=== PATIENT | female | born 1960 ===

== ENCOUNTER 2025-01-07 10:45 | Inpatient (IN) | payer OTHER ==
[~2025-01-07] VITALS: Ht 167.6 cm; Wt 53.5 kg
[2025-01-07] MEDS ORDERED: ATORVASTATIN CA10 MG (13:08)
[2025-01-07] MEDS ORDERED: FOSAMAX70 MG (13:09)
[2025-01-14] MEDS ORDERED: CEFTRIAXONE SODIUM 2,000 MG VIAL ONE (09:44)
[2025-01-14] MEDS ORDERED: METRONIDAZOLE/SODIUM CHLORIDE 500 MG/100 ML PIGGYBACK IV ONE (09:45)
[2025-01-14] MEDS ORDERED: LIDOCAINE HCL 1%/EPINEPHRINE 20ML VIAL IJ ONE (10:11)
[2025-01-14] MEDS ORDERED: DIBUCAINE 30 GM TUBE ONE (10:11)
[2025-01-14] MEDS ORDERED: CHLORHEXIDINE GLUCONATE 120 ML BOTTLE TOP ONE (10:11)
[2025-01-14] MEDS ORDERED: HEMOSTATIC MATRIX 1 KIT KIT TOP ONE (10:11)
[2025-01-14] MEDS ORDERED: BUPIVACAINE HCL/MPF 0.5% 30ML VIAL ONE (10:11)
[2025-01-14] MEDS ORDERED: POVIDONE-IODINE 118 ML BOTT TOP ONE (10:16)
[2025-01-14] MEDS ORDERED: ONDANSETRON HCL 2 MG/ML VIAL IV PRN (10:45)
[2025-01-14] MEDS ORDERED: MORPHINE SULFATE 4 MG/ML CARTRIDGE IV PRN (10:45)
[2025-01-14] MEDS ORDERED: RINGERS SOLUTION,LACTATED 1,000 ML IV SCH (10:45)
[2025-01-14] MEDS ORDERED: DEXTROSE 50 % IN WATER 0.5 G/ML VIAL IV PRN (10:45)
[2025-01-14] MEDS ORDERED: SUGAMMADEX SODIUM 200 MG/2 ML VIAL IV ONE (11:15)
[2025-01-14 13:00] LABS: BASO % 0.6 % (0.1-1.2); EOS # 0.43 (0.04-0.54); HEMATOCRIT 36.6 % (34.1-44.9); HEMOGLOBIN 12.4 g/dL (11.2-15.7); LYMPH # 1.26 (1.18-3.74); LYMPH % 20.5 % (19.3-53.1); MEAN CORPUSCULAR HEMOGLOBIN 31.5 pg (25.6-32.2); MONO # 0.52 (0.24-0.82); MONO % 8.4 % (4.7-12.5); NEUT % 63.3 % (34.0-71.1); PLATELET COUNT 341 K/uL (163-369); RED BLOOD COUNT 3.94 M/uL (3.93-5.22); RED CELL DISTRIBUTION WIDTH 13.3 % (11.6-14.4)
[2025-01-14] MEDS ORDERED: HYOSCYAMINE SULFATE 0.125 MG TAB.SUBL SL SCH (13:00)
[2025-01-14 14:00] LABS: CALCIUM 8.4 mg/dL (8.5-10.1); CREATININE SERUM 0.52 mg/dL (0.55-1.02); GFR 117.98; MAGNESIUM 1.9 mg/dL (1.8-2.4); PHOSPHOROUS 3.2 mg/dL (2.5-4.9); POTASSIUM 4.29 mEq/L (3.5-5.1)
[2025-01-14] MEDS ORDERED: ACETAMINOPHEN 500 MG GEL..CAP PO SCH (14:00)
[2025-01-14] MEDS ORDERED: POLYETHYLENE GLYCOL 3350 17 GM BLIST.PACK PO SCH (17:00)
[2025-01-14] MEDS ORDERED: HYOSCYAMINE SULFATE 0.125 MG TAB.SUBL ONE (17:28)
[2025-01-14 18:00] VITALS: BP 131/78; O2SAT 97
[2025-01-14] MEDS ORDERED: FAMOTIDINE/PF 20 MG/2 ML VIAL IV PUSH SCH (21:00)
[2025-01-15 00:31] VITALS: BP 102/64; O2SAT 96
[2025-01-15 08:03] LABS: ALBUMIN 2.8 gm/dL (3.4-5.0); CALCIUM 8.2 mg/dL (8.5-10.1); CREATININE SERUM 0.51 mg/dL (0.55-1.02); GFR 120.65; MAGNESIUM 1.8 mg/dL (1.8-2.4); PHOSPHOROUS 3.5 mg/dL (2.5-4.9); POTASSIUM 4.32 mEq/L (3.5-5.1)
[2025-01-15 08:15] VITALS: BP 101/60; O2SAT 96
[2025-01-15 08:32] LABS: BASO % 0.5 % (0.1-1.2); EOS # 0.37 (0.04-0.54); EOS % 3.8 % (0.7-7.0); HEMATOCRIT 35.8 % (34.1-44.9); HEMOGLOBIN 11.9 g/dL (11.2-15.7); LYMPH # 1.37 (1.18-3.74); LYMPH % 14.1 % (19.3-53.1); MEAN CORPUSCULAR HEMOGLOBIN 30.3 pg (25.6-32.2); MONO # 0.91 (0.24-0.82); MONO % 9.4 % (4.7-12.5); NEUT # 6.99 (1.56-6.13); NEUT % 71.9 % (34.0-71.1); PLATELET COUNT 359 K/uL (163-369); RED BLOOD COUNT 3.93 M/uL (3.93-5.22); RED CELL DISTRIBUTION WIDTH 13.3 % (11.6-14.4)
[2025-01-15] MEDS ORDERED: TRAM1TAB98 PO (11:15)
[2025-01-15] MEDS ORDERED: PEPCID AC20 MG PO (11:15)
[2025-01-15] MEDS ORDERED: ENOXAPARIN SODIUM 40 MG/0.4 ML SYRINGE SUBCUTANEO SCH (17:00)
[2025-01-16] MEDS ORDERED: ENOXAPARIN SODIUM 40 MG/0.4 ML SYRINGE SUBCUTANEO SCH (09:00)
[2025-01-19] MEDS ORDERED: SUGAMMADEX SODIUM 200 MG/2 ML VIAL IV ONE (10:30)
== END 2025-01-15 13:15 | disposition home or self-care (01) | DRG 349 ==
LOC: O/R 01-14 07:53 → SURH 01-14 10:30
PROVIDERS: ADMIT Surgery; ATTEND Surgery
PROC: 0DBP7ZZ Excision of Rectum, Via Natural or Artificial Opening (ICD-10-PCS; principal; 2025-01-14 10:30)
DX: D12.8 Benign neoplasm of rectum (principal); D37.5 Neoplasm of uncertain behavior of rectum; D12.5 Benign neoplasm of sigmoid colon